=== PATIENT | female | born 1990 | race Caucasian/White ===

== ENCOUNTER → 2017-03-13 | Outpatient (CLI) | payer OTHER ==
[2017-03-13 17:13] LABS: Hepatitis B Surface Antibody POSITIVE (Negative)
[2017-03-14 00:57] LABS: ANA w/Reflex to Titer NEGATIVE (NEGATIVE)
== END | disposition home or self-care (01) ==
LOC: LABWHC1 15:17
PROVIDERS: ATTEND Nurse Practitioner Family
DX: H04.129 Dry eye syndrome of unspecified lacrimal gland (principal); B19.10 Unspecified viral hepatitis B without hepatic coma
CPT/HCPCS: 36415; 84439; 84443; 86038; 86235; 86376; 86706

== ENCOUNTER 2017-05-11 04:37 | Emergency (ER) | payer OTHER ==
[2017-05-11 04:44] LABS: Glucose,Whole Blood 118 mg/dL (75-99)
[2017-05-11] MEDS ORDERED: SODIUM CHLORIDE 0.9% 500 ML IV STA (05:08)
[2017-05-11 05:38] LABS: Basophils % (A) 0 %; CHCM 33.2; Eosinophils # (A) 0.2 k/uL (0-0.7); Eosinophils % (A) 2 %; HCT 39.9 % (34.0-46.0); HDW 2.47; HGB 13.8 gm/dL (11.4-16.0); Luc # (Auto) 0.24; Luc % (Auto) 3; Lymphocytes # (A) 2.8 k/uL (1.0-4.8); Lymphocytes % (A) 28 %; MCH 29.3 pg (25.0-35.0); MCHC 34.6 g/dL (31.0-37.0); MCV 84.7 fL (80.0-100.0); Mean Platelet Volume 7.9; Monocytes # (A) 0.5 k/uL (0-1.0); Monocytes % (A) 5 %; Neutrophils # (A) 6.1 k/uL (1.3-7.7); Neutrophils % (A) 62 %; RBC 4.71 m/uL (3.80-5.40); RDW 12.9 % (11.5-15.5); WBC 9.9 k/uL (3.8-10.6); WBC (Perox) 9.56
--- NOTE | 2017-05-11 05:50 | XR ---
EXAM: XR Chest, 1 View. CLINICAL HISTORY: Reason: syncope TECHNIQUE: Frontal view of the chest. COMPARISON: No relevant prior studies available. FINDINGS: Lungs: Unremarkable. No consolidation. Pleural spaces: Unremarkable. No pneumothorax. Heart: Unremarkable. No cardiomegaly. Mediastinum: Unremarkable. Bones: Unremarkable. No acute fracture. IMPRESSION: Normal chest.
[2017-05-11 05:55] LABS: ALT 24 U/L (9-52); AST 22 U/L (14-36); Alkaline Phosphatase 97 U/L (38-126); Anion Gap 12 mmol/L; Blood Urea Nitrogen 17 mg/dL (7-17); Calcium 9.8 mg/dL (8.4-10.2); Carbon Dioxide 23 mmol/L (22-30); Chloride 106 mmol/L (98-107); Glucose 104 mg/dL (74-99); Non-African American GFR(MDRD) >60 (>60 ml/min/1.73 sqM); Potassium 4.2 mmol/L (3.5-5.1); Sodium 141 mmol/L (137-145); Total Bilirubin 0.9 mg/dL (0.2-1.3); Total Protein 6.8 g/dL (6.3-8.2)
[2017-05-11 05:56] LABS: INR 1.1 (<1.1); Partial Thromboplastin Time 24.8 sec (22.0-30.0); Prothrombin Time 10.7 sec (9.0-12.0)
[2017-05-11 06:12] LABS: Appearance,Urine Cloudy (Clear); Bacteria,Urine Rare /hpf; Bilirubin,Urine Negative (Negative); Glucose,Urine (UA) Negative (Negative); Ketones,Urine Negative (Negative); Leukocyte Esterase,Urine Moderate (Negative); Mucus,Urine Occasional /hpf; Nitrite,Urine Negative (Negative); Particle Count 8103; Protein,Urine Trace (Negative); RBC,Urine 1 /hpf (0-5); Specific Gravity,Urine 1.018 (1.001-1.035); Squamous Epithelial Cell,Urine 2 /hpf (0-4); UA Billing (MACRO vs. MICRO) MICRO; Urobilinogen,Urine <2.0 mg/dL (<2.0); WBC,Urine 7 /hpf (0-5)
[2017-05-11 06:13] LABS: Creatine Kinase 114 U/L (30-135)
[2017-05-11 06:26] LABS: Creatine Kinase MB 0.9 ng/mL (0.0-2.4); Troponin I <0.012 ng/mL (0.000-0.034)
--- NOTE | 2017-05-11 06:55 | ED ---
Syncope HPI - General Chief Complaint: Syncope Stated Complaint: Syncope Time Seen by Provider: 05/11/17 04:52 Source: patient Mode of arrival: EMS Limitations: no limitations - History of Present Illness Initial Comments: This patient is a 26-year-old woman presenting to be evaluated after she had a syncopal episode this morning. The patient states she had gotten out of bed to use the bathroom, was feeling lightheaded, and then the next thing that she knew she had fallen from the commode onto the floor. She denies any injury. She states that she is currently feeling back to her baseline. There were no seizure like symptoms. She was not having chest pain, palpitations, dyspnea, or diaphoresis. MD Complaint: loss of consciousness -: minutes(s) Prodromal Symptoms: lightheaded -: second(s) Witnessed: yes - by bystander Current Symptoms: none, back to baseline Context: getting out of bed Treatments Prior to Arrival: none - Related Data Home Medications Medication Instructions Recorded Confirmed No Known Home Medications [No 05/11/17 05/11/17 Known Home Medications] Allergies Allergy/AdvReac Type Severity Reaction Status Date / Time No Known Allergies Allergy Verified 05/11/17 04:45 Review of Systems ROS Statement: Those systems with pertinent positive or pertinent negative responses have been documented in the HPI. ROS Other: All systems not noted in ROS Statement are negative. Constitutional: Denies: fever, chills, weakness Eyes: Denies: eye pain Respiratory: Denies: cough, dyspnea, wheezes Cardiovascular: Reports: syncope. Denies: chest pain, palpitations, edema Gastrointestinal: Denies: abdominal pain, nausea, vomiting Genitourinary: Denies: dysuria Musculoskeletal: Denies: back pain Skin: Denies: rash, lesions, change in color Neurological: Denies: headache, weakness, numbness Past Medical History Past Medical History: No Reported History Additional Past Medical History / Comment(s): OB history: She had two previous c -section. blood type o+, History of Any Multi-Drug Resistant Organisms: None Reported Past Surgical History: Section Past Anesthesia/Blood Transfusion Reactions: No Reported Reaction Past Psychological History: Anxiety, Depression Smoking Status: Never smoker Past Alcohol Use History: None Reported Past Drug Use History: None Reported - Past Family History Mother Family Medical History: No Reported History General Exam Limitations: no limitations General appearance: alert, in no apparent distress Head exam: Present: atraumatic, normocephalic Eye exam: Present: normal appearance. Absent: scleral icterus, conjunctival injection ENT exam: Present: normal oropharynx Neck exam: Present: normal inspection Respiratory exam: Present: normal lung sounds bilaterally. Absent: respiratory distress, wheezes, rales, rhonchi, stridor Cardiovascular Exam: Present: regular rate, normal rhythm, normal heart sounds. Absent: systolic murmur, diastolic murmur, rubs, gallop GI/Abdominal exam: Present: soft. Absent: distended, tenderness, guarding, rebound, mass Extremities exam: Present: normal inspection, normal capillary refill. Absent: pedal edema, calf tenderness Back exam: Present: normal inspection. Absent: CVA tenderness (R), CVA tenderness (L), vertebral tenderness Neurological exam: Present: alert, oriented X3, CN II-XII intact. Absent: motor sensory deficit Skin exam: Present: warm, dry, intact, normal color. Absent: rash Course Vital Signs 05/11/17 05/11/17 05/11/17 04:39 05:03 06:06 Temperature 98.1 F Pulse Rate 101 H 99 Pulse Rate [ 100 Sitting] Pulse Rate [ 120 H Standing] Pulse Rate [ 91 Supine] Respiratory 16 16 Rate Blood Pressure 113/55 110/59 Blood Pressure 113/51 [Sitting] Blood Pressure 105/51 [Standing] Blood Pressure 104/51 [Supine] O2 Sat by Pulse 100 99 100 Oximetry 05/11/17 07:05 Temperature 98.6 F Pulse Rate 101 H Pulse Rate [ Sitting] Pulse Rate [ Standing] Pulse Rate [ Supine] Respiratory 15 Rate Blood Pressure 117/56 Blood Pressure [Sitting] Blood Pressure [Standing] Blood Pressure [Supine] O2 Sat by Pulse 97 Oximetry EKG Findings - EKG Results: EKG: interpreted by ERMD, sinus rhythm (Rate 100 bpm), normal QRS, normal ST/T - Blocks, [place], Hypertrophy, ST Abn: QRS axis and voltage: right axis deviation (+90 to +180) Medical Decision Making - Lab Data Result diagrams: 05/11/17 04:56 05/11/17 04:56 Lab Results 05/11/17 05/11/17 05/11/17 Range/Units 04:41 04:56 04:56 WBC 9.9 (3.8-10.6) k/uL RBC 4.71 (3.80-5.40) m/uL Hgb 13.8 (11.4-16.0) gm/dL Hct 39.9 (34.0-46.0) % MCV 84.7 (80.0-100.0) fL MCH 29.3 (25.0-35.0) pg MCHC 34.6 (31.0-37.0) g/dL RDW 12.9 (11.5-15.5) % Plt Count 225 (150-450) k/uL Neutrophils % 62 % Lymphocytes % 28 % Monocytes % 5 % Eosinophils % 2 % Basophils % 0 % Neutrophils # 6.1 (1.3-7.7) k/uL Lymphocytes # 2.8 (1.0-4.8) k/uL Monocytes # 0.5 (0-1.0) k/uL Eosinophils # 0.2 (0-0.7) k/uL Basophils # 0.0 (0-0.2) k/uL PT (9.0-12.0) sec INR (<1.1) APTT (22.0-30.0) sec D-Dimer (<0.60) mg/L FEU Sodium (137-145) mmol/L Potassium (3.5-5.1) mmol/L Chloride (98-107) mmol/L Carbon Dioxide (22-30) mmol/L Anion Gap mmol/L BUN (7-17) mg/dL Creatinine (0.52-1.04) mg/dL Est GFR (MDRD) Af Amer (>60 ml/min/1.73 sqM) Est GFR (MDRD) Non-Af (>60 ml/min/1.73 sqM) Glucose (74-99) mg/dL POC Glucose (mg/dL) 118 H (75-99) mg/dL POC Glu [employer]igerator Preparer ID [place] Calcium (8.4-10.2) mg/dL Total Bilirubin (0.2-1.3) mg/dL AST (14-36) U/L ALT (9-52) U/L Alkaline Phosphatase (38-126) U/L Total Creatine Kinase 114 (30-135) U/L CK-MB (CK-2) 0.9 (0.0-2.4) ng/mL CK-MB (CK-2) Rel Index 0.8 Troponin I <0.012 (0.000-0.034) ng/mL Total Protein (6.3-8.2) g/dL Albumin (3.5-5.0) g/dL Urine Color Urine Appearance (Clear) Urine pH (5.0-8.0) Ur Specific [place] (1.001-1.035) Urine Protein (Negative) Urine Glucose (UA) (Negative) Urine Ketones (Negative) Urine Blood (Negative) Urine Nitrite (Negative) Urine Bilirubin (Negative) Urine Urobilinogen (<2.0) mg/dL Ur Leukocyte Esterase (Negative) Urine RBC (0-5) /hpf Urine WBC (0-5) /hpf Ur Squamous Epith Cells (0-4) /hpf Urine Bacteria (None) /hpf Hyaline Casts (0-2) /lpf Urine Mucus (None) /hpf 05/11/17 05/11/17 05/11/17 Range/Units 04:56 04:56 05:28 WBC (3.8-10.6) k/uL RBC (3.80-5.40) m/uL Hgb (11.4-16.0) gm/dL Hct (34.0-46.0) % MCV (80.0-100.0) fL MCH (25.0-35.0) pg MCHC (31.0-37.0) g/dL RDW (11.5-15.5) % Plt Count (150-450) k/uL Neutrophils % % Lymphocytes % % Monocytes % % Eosinophils % % Basophils % % Neutrophils # (1.3-7.7) k/uL Lymphocytes # (1.0-4.8) k/uL Monocytes # (0-1.0) k/uL Eosinophils # (0-0.7) k/uL Basophils # (0-0.2) k/uL PT 10.7 (9.0-12.0) sec INR 1.1 (<1.1) APTT 24.8 (22.0-30.0) sec D-Dimer 0.26 (<0.60) mg/L FEU Sodium 141 (137-145) mmol/L Potassium 4.2 (3.5-5.1) mmol/L Chloride 106 (98-107) mmol/L Carbon Dioxide 23 (22-30) mmol/L Anion Gap 12 mmol/L BUN 17 (7-17) mg/dL Creatinine 0.69 (0.52-1.04) mg/dL Est GFR (MDRD) Af Amer >60 (>60 ml/min/1.73 sqM) Est GFR (MDRD) Non-Af >60 (>60 ml/min/1.73 sqM) Glucose 104 H (74-99) mg/dL POC Glucose (mg/dL) (75-99) mg/dL POC Glu Electric Refrigerator Preparer ID Calcium 9.8 (8.4-10.2) mg/dL Total Bilirubin 0.9 (0.2-1.3) mg/dL AST 22 (14-36) U/L ALT 24 (9-52) U/L Alkaline Phosphatase 97 (38-126) U/L Total Creatine Kinase (30-135) U/L CK-MB (CK-2) (0.0-2.4) ng/mL CK-MB (CK-2) Rel Index Troponin I (0.000-0.034) ng/mL Total Protein 6.8 (6.3-8.2) g/dL Albumin 3.9 (3.5-5.0) g/dL Urine Color Yellow Urine Appearance Cloudy H (Clear) Urine pH 6.0 (5.0-8.0) Ur Specific [place] 1.018 (1.001-1.035) Urine Protein Trace H (Negative) Urine Glucose (UA) Negative (Negative) Urine Ketones Negative (Negative) Urine Blood Negative (Negative) Urine Nitrite Negative (Negative) Urine Bilirubin Negative (Negative) Urine Urobilinogen <2.0 (<2.0) mg/dL Ur Leukocyte Esterase Moderate H (Negative) Urine RBC 1 (0-5) /hpf Urine WBC 7 H (0-5) /hpf Ur Squamous Epith Cells 2 (0-4) /hpf Urine Bacteria Rare H (None) /hpf Hyaline Casts 9 H (0-2) /lpf Urine Mucus Occasional H (None) /hpf Disposition Clinical Impression: Vasovagal syncope Disposition: HOME SELF-CARE Condition: Good Instructions: Syncope (ED) Referrals: Debbie De Anda III, MD [Primary Care Provider] - 1-2 days
[2017-05-11 07:06] VITALS: BP 117/56; PULSE 101; RESP 15; TEMP 98.6
== END 2017-05-11 07:07 | disposition home or self-care (01) ==
LOC: EC 04:37
DX: R55 Syncope and collapse (principal); R42 Dizziness and giddiness; W17.89XA Other fall from one level to another, initial encounter; Y92.002 Bathroom of unspecified non-institutional (private) residence as the place of occurrence of the external cause
CPT/HCPCS: 36415; 71010; 80053; 81001; 82550; 82553; 84484; 85025; 85379; 85610; 85730; 93005; 96360; 99285

== ENCOUNTER → 2017-06-19 | Outpatient (CLI) | payer OTHER ==
--- NOTE | 2017-06-19 18:03 | ECHOF ---
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 This was a technically good study. Overall left ventricular systolic function is normal with, an EF between 60 - 65 %. The right ventricle is normal in size and function. Normal LA size by volume 22+/-6 ml/m2. The right atrium is normal in size. The aortic valve is trileaflet, and appears structurally normal. No aortic stenosis or regurgitation. The mitral valve is normal. There is trace mitral regurgitation. Trace tricuspid regurgitation present. There is no evidence of pulmonary hypertension. The right ventricular systolic pressure, as measured by Doppler, is 9.42mmHg. The pulmonic valve is normal. The aortic root size is normal. Normal inferior vena cava with normal inspiratory collapse consistent with estimated right atrial pressure of 5 mmHg. The pericardium is normal. There is no pericardial effusion. CONCLUSIONS -------- 1. Sinus rhythm. 2. The aortic root size is normal. 3. There is no pericardial effusion. 4. This was a technically good study. 5. Overall left ventricular systolic function is normal with, an EF between 60 - 65 %. 6. Normal LA size by volume 22+/-6 ml/m2. 7. The aortic valve is trileaflet, and appears structurally normal. No aortic stenosis or regurgitation. 8. There is trace mitral regurgitation. 9. Trace tricuspid regurgitation present. 10. There is no evidence of pulmonary hypertension. 11. The right ventricular systolic pressure, as measured by Doppler, is 9.42mmHg. TIP SCOURER: Lm Hughes RDCS
== END | disposition home or self-care (01) ==
LOC: RADECHMAIN 16:16
PROVIDERS: ATTEND Family Medicine
DX: Q23.1 Congenital insufficiency of aortic valve (principal)
CPT/HCPCS: 93306

== ENCOUNTER → 2017-08-01 | Outpatient (CLI) | payer OTHER ==
--- NOTE | 2017-08-01 13:14 | XR ---
EXAMINATION TYPE: XR scoliosis survey DATE OF EXAM: 08/01/2017 COMPARISON: NONE HISTORY: Chronic back pain TECHNIQUE: 4 views are submitted FINDINGS: There is a subtle S-shaped curvature of the thoracal lumbar spine measuring approximately 8 degrees. Calcifications in the right upper quadrant. IMPRESSION: 1. Subtle S-shaped scoliotic curvature measuring approximately 8 degrees. 2. Correlate for right-sided nephrolithiasis.
== END ==
LOC: RADXRMAIN 12:13
PROVIDERS: ATTEND Nurse Practitioner Family
DX: M41.9 Scoliosis, unspecified (principal)
CPT/HCPCS: 72082

== ENCOUNTER → 2017-08-10 | Outpatient (CLI) | payer OTHER ==
--- NOTE | 2017-08-10 10:59 | CT ---
EXAMINATION TYPE: CT abdomen pelvis wo con DATE OF EXAM: 08/10/2017 COMPARISON: NONE HISTORY: calculus of kidney/ab pain/lower back pain x [address] DLP: 390.40 mGycm Automated exposure control for dose reduction was used. TECHNIQUE: Helical acquisition of images was performed from the lung bases through the pelvis withou t intravenous or oral contrast. This limits evaluation of the hollow and solid viscera.. FINDINGS: LUNG BASES: No significant abnormality is appreciated. LIVER/GB: No significant abnormality is appreciated. PANCREAS: No significant abnormality is seen. SPLEEN: No significant abnormality is seen. ADRENALS: No significant abnormality is seen. KIDNEYS: Within the superior pole the right kidney there is a 3 mm nonobstructing calculus, within th e inferior pole the right kidney there is a 4 mm nonobstructing calculus and within the left inferior pole there is a 2 mm nonobstructing calculus. No evidence of ureteral or urinary bladder calculi. Si ngle phlebolith is seen within the left hemipelvis.. FREE AIR: No free air is visualized RETROPERITONEAL ADENOPATHY: None visualized REPRODUCTIVE ORGANS: Probable left ovarian cyst versus follicle. URINARY BLADDER: No significant abnormality is seen. PELVIC ADENOPATHY: None visualized. OSSEOUS STRUCTURES: No significant abnormality is seen. BOWEL: No significant abnormality is seen. Appendix is air-filled and within normal limits of size. OTHER: Diastases recti is noted as well as a small fat filled umbilical hernia with a 6 mm neck. Umbi lical vein is incidentally noted although no discrete evidence of hepatic disease is seen. IMPRESSION: 1. BILATERAL NONOBSTRUCTING RENAL CALCULI. NO EVIDENCE OF OBSTRUCTIVE UROPATHY OR URINARY BLADDER LUIS ANGEL CULI. 2. PROBABLE LEFT ADNEXAL FOLLICLE VERSUS CYST. IF FURTHER CLINICAL CONCERN PELVIC ULTRASOUND COULD BE PERFORMED FOR CHARACTERIZATION.
== END | disposition home or self-care (01) ==
LOC: RADCTMAIN 09:16
PROVIDERS: ATTEND Family Medicine
DX: N20.0 Calculus of kidney (principal)
CPT/HCPCS: 74176

== ENCOUNTER → 2018-05-24 | Day surgery (SDC) | payer OTHER ==
[2018-05-21 12:24] VITALS: BMI 28.3
--- NOTE | 2018-05-23 06:38 | P.HPOB ---
History of Present Illness H&P Date: 05/23/18 Chief Complaint: Patient is requesting permanent sterilization. This patient is a pleasant 27-year-old 2 para 2 female who presented to me for her yearly examination was requesting permanent sterilization. Patient' s was going to get a vasectomy however he declined. Patient does not want anything hormonal for control or an IUD has requested laparoscopic tubal cauterization for permanent sterilization. Review of Systems Constitutional: Denies chills, Denies fever Cardiovascular: Denies chest pain, Denies shortness of breath Past Medical History Past Medical History: No Reported History Additional Past Medical History / Comment(s): OB history: She had two previous c -section. blood type o+, History of Any Multi-Drug Resistant Organisms: None Reported Past Surgical History: Section Additional Past Surgical History / Comment(s): c-sect x 2 Past Anesthesia/Blood Transfusion Reactions: No Reported Reaction Past Psychological History: Depression Smoking Status: Never smoker Past Alcohol Use History: None Reported Past Drug Use History: None Reported - Past Family History Mother Family Medical History: No Reported History Medications and Allergies Home Medications Medication Instructions Recorded Confirmed Type FLUoxetine HCL [PROzac] 40 mg PO DAILY 05/21/18 05/21/18 History Allergies Allergy/AdvReac Type Severity Reaction Status Date / Time No Known Allergies Allergy Verified 05/21/18 12:20 Exam - OBG Physical Exam Abdomen: bowel sounds normal, no diffuse tenderness, no bruit present, no guarding noted, no hepatomegaly, no splenomegaly, no mass Vulva: both: normal Vagina: normal moisture, no discharge Cervix: no lesion, no discharge Uterus: normal size, normal contour Adnexa: both: normal Assessment and Plan (1) Family planning Narrative/Plan: This is a pleasant 27-year-old 2 para 2 female who is presenting for laparoscopic bilateral fallopian tube cauterization for permanent sterilization. Patient I have discussed the fact that this is a permanent procedure, however there is a failure rate of approximately 5 per thousand procedures done. She understands that if she were to ever to become she has a 50% chance of a tubal or an ectopic . Patient also understands laparoscopic surgery and apparently has risks including risks of infection, bleeding, possible injury to bowel, bladder, vessels, and/or other organs. We've discussed the fact that this is an elective procedure and alternatives exist. All the patient's questions are answered and a written consent is obtained. Status: Acute Code(s): Z30.09 - ENCOUNTER FOR OTH GENERAL CNSL AND ADVICE ON CONTRACEPTION SNOMED Code(s): 684706515
[~2018-05-24] MED LIST: BUPIVACAINE (PF) 0.5% 30 ML VIAL SQ ONE; DEXAMETHASONE SOD PHOSPHATE 10 MG/ML 1 ML VIAL IV ONE; HYDROmorphone (PF) 1 MG/ML ONE; HYDROmorphone 0.5 MG/0.5 ML SYRINGE IVP PRN; KETOROLAC 30 MG/ML 1 ML VIAL ONE; LACTATED RINGERS 1,000 ML IV SCH; LIDOCAINE 1% 20 ML VIAL (10MG/ML) FOR IV START INTRADERMA ONE; LIDOCAINE 1% INJ 10MG/ML (20 ML MDV) ONE; MIDAZOLAM 2 MG/2 ML VIAL ONE; ONDANSETRON 4 MG/2 ML VIAL IVP ONE; PROPOFOL 10 MG/ML 20 ML VIAL IV ONE; Pre Op ABX Message 1 EACH MISC MISCELLANE ONE; SCOPOLAMINE 1.5MG/72HR PATCH TRANSDERM ONE; SUCCINYLCHOLINE CHLORIDE 100 MG/5 ML SYR IV ONE; diphenhydrAMINE 50 MG/ML 1 ML VIAL IVP ONE; fentaNYL (PF) 50 MCG/ML 2 ML AMP ONE
--- NOTE | 2018-05-24 08:08 | P.OP ---
Date of Procedure: 05/24/18 Preoperative Diagnosis: Multi parity desires permanent sterilization Postoperative Diagnosis: Same Procedure(s) Performed: Laparoscopic bilateral fallopian tube cauterization Anesthesia: JEFF Surgeon: Garry Hope Estimated Blood Loss (ml): 10 IV fluids (ml): 25 Pathology: none sent Condition: stable Disposition: PACU Indications for Procedure: Please see dictated H&P for intimate details of this patient's admission. Brief summary this is a pleasant 27-year-old 2 para 2 female admitted to the [facility] for elective laparoscopic tubal cauterization for permanent sterilization. Understands this procedure is considered permanent, however there is approximately 5 per thousand chance of failure. She understands if she did become she is a 50% chance of a tubal or an ectopic . Patient also understands this surgery itself has risks including risks of infection, bleeding, possible injury bowel, bladder, vessels , and/or other organs. All the patient's questions are answered written consent is obtained. Operative Findings: This patient had a normal-appearing pelvis and upper abdomen. Description of Procedure: This patient is taken to the operating room where she is laid in the supine position. She subsequent undergoes general endotracheal anesthesia without incident. With an adequate level of anesthesia she's placed in the dorsal lithotomy position. She has a vaginal perineal abdominal prep and drape. First good on below placed a speculum into the vagina visualizing cervix. The anterior lip of the cervix is grasped with an Allis clamp and the acorn cannula is gently placed into the endocervix. Cannula is attached to the Allis clamp. Bladder is drained with a red Brock catheter for 25 mL of urine and left in place. With this done I then removed the speculum changed gloves and go up above. A 1 cm infraumbilical incision is then made. A 10 mm bladed Transfluent optical trocar is then placed directly into the peritoneal cavity. With peritoneal placement confirmed, pneumoperitoneum was then created to 12 mm of carbon dioxide gas. With this done the patient placed in Trendelenburg position. A 5 mm incision made through the previous Pfannenstiel skin incision. Through the [address] a 5 mm bladed lists optical trocar. This done a blunt probe was used to visualize uterus tubes and ovaries all appears normal. Upper abdomen appears normal. Using bipolar cautery I then grasped the left fallopian tube approximately 4 cm from its cornual insertion and a 2-3 cm segment of tube is completely cauterized using bipolar cautery. Complete cauterization is noted by the volt meter. Similar technique is done on the right side with similar results. With this done the lower trochars removed. Excellent hemostasis is noted. The pneumoperitoneum was reduced and the upper trochars removed. Incisions are then closed using interrupted 4-0 Vicryl. I did put 2 stitches on the skin of the umbilical incision for hemostasis. An excellent hemostasis is noted. Steri-Strips and sterile dressing is applied. I infiltrate both incisions with half percent Marcaine for postoperative pain control.I then go down below remove the acorn cannula an Allis clamp. Patient this point is awakened from anesthesia and taken the recovery room in satisfactory condition. All counts are correct 3. There are no complications.
[2018-05-24 08:23] VITALS: TEMP 97.5
[2018-05-24 09:05] VITALS: RESP 18
[2018-05-24 10:14] VITALS: BP 97/61; PULSE 78
== END | disposition home or self-care (01) ==
LOC: OR 05:44
PROVIDERS: ATTEND Obstetrics & Gynecology
DX: Z30.2 Encounter for sterilization (principal); Z79.1 Long term (current) use of non-steroidal anti-inflammatories (NSAID); Z79.891 Long term (current) use of opiate analgesic; Z79.899 Other long term (current) drug therapy
CPT/HCPCS: 81025; 58600; J2250; J1200; J1100; J2405; J2001; J3010; J1885; J1170; J0330; J2704

== ENCOUNTER 2018-05-28 16:38 | Emergency (ER) | payer OTHER ==
[2018-05-28 17:45] VITALS: BP 116/70; PULSE 68; RESP 18; TEMP 98.3
[2018-05-28 18:31] LABS: Basophils % (A) 0 %; Eosinophils # (A) 0.2 k/uL (0-0.7); Eosinophils % (A) 2 %; HCT 40.7 % (34.0-46.0); HGB 13.5 gm/dL (11.4-16.0); Lymphocytes # (A) 3.7 k/uL (1.0-4.8); Lymphocytes % (A) 32 %; MCH 27.9 pg (25.0-35.0); MCHC 33.1 g/dL (31.0-37.0); Mean Platelet Volume 7.1; Monocytes # (A) 0.6 k/uL (0-1.0); Monocytes % (A) 5 %; Neutrophils % (A) 60 %; Platelet Count 308 k/uL (150-450); RBC 4.83 m/uL (3.80-5.40); RDW 13.2 % (11.5-15.5); WBC 11.7 k/uL (3.8-10.6)
[2018-05-28 18:35] LABS: MCV 84.3 fL (80.0-100.0)
[2018-05-28 18:44] LABS: ALT 27 U/L (9-52); AST 22 U/L (14-36); Albumin 4.3 g/dL (3.5-5.0); Alkaline Phosphatase 89 U/L (38-126); Amylase 74 U/L (30-110); Anion Gap 9 mmol/L; Blood Urea Nitrogen 18 mg/dL (7-17); Calcium 9.9 mg/dL (8.4-10.2); Carbon Dioxide 27 mmol/L (22-30); Chloride 103 mmol/L (98-107); Glucose 87 mg/dL (74-99); Lipase 49 U/L (23-300); Potassium 4.2 mmol/L (3.5-5.1); Sodium 139 mmol/L (137-145); Total Bilirubin 0.9 mg/dL (0.2-1.3)
[2018-05-28] MEDS ORDERED: SODIUM CHLORIDE 0.9% 1,000 ML IV SCH (20:45)
--- NOTE | 2018-05-28 20:48 | ED ---
Abdominal Pain HPI - General Chief Complaint: Abdominal Pain Stated Complaint: Post surgery/stomach very hard Time Seen by Provider: 05/28/18 20:35 Source: patient, RN notes reviewed, old records reviewed Mode of arrival: ambulatory Limitations: no limitations - History of Present Illness Initial Comments: 27-year-old female 3 days postop after tubal ligation presents emergency room with abdominal pain and distention. Patient states that she's had some lower pelvic pain. Patient reports no dysuria or hematuria. Short is a passing gas and had a bowel movement today. She states there feels like her insides are swollen and pushing forward. She states that she has had no vomiting. No chest pain. She reports it seems that she feels short of breath because it feels like she is having pressure on her diaphragm. Patient states that she has no vaginal discharge. Her surgical sites appeared well. No drainage or redness. - Related Data Home Medications Medication Instructions Recorded Confirmed FLUoxetine HCL [PROzac] 40 mg PO DAILY 05/21/18 05/28/18 Cholecalciferol (Vitamin D3) 2,000 unit PO DAILY 05/28/18 05/28/18 [Vitamin D3] Allergies Allergy/AdvReac Type Severity Reaction Status Date / Time No Known Allergies Allergy Verified 05/28/18 20:45 Review of Systems ROS Statement: Those systems with pertinent positive or pertinent negative responses have been documented in the HPI. ROS Other: All systems not noted in ROS Statement are negative. Past Medical History Past Medical History: No Reported History Additional Past Medical History / Comment(s): OB history: She had two previous c -section. blood type o+, History of Any Multi-Drug Resistant Organisms: None Reported Past Surgical History: Section, Tubal Ligation Past Anesthesia/Blood Transfusion Reactions: No Reported Reaction Past Psychological History: Anxiety, Depression Smoking Status: Never smoker Past Alcohol Use History: None Reported Past Drug Use History: None Reported - Past Family History Mother Family Medical History: No Reported History General Exam - General Exam Comments Initial Comments: This is a 27-year-old female. Alert and oriented. No significant distress. Limitations: no limitations General appearance: alert, in no apparent distress Head exam: Present: atraumatic, normocephalic, normal inspection Eye exam: Present: normal appearance, PERRL, EOMI. Absent: scleral icterus, conjunctival injection, periorbital swelling ENT exam: Present: normal exam, mucous membranes moist Neck exam: Present: normal inspection. Absent: tenderness, meningismus, lymphadenopathy Respiratory exam: Present: normal lung sounds bilaterally. Absent: respiratory distress, wheezes, rales, rhonchi, stridor Cardiovascular Exam: Present: regular rate, normal rhythm, normal heart sounds. Absent: systolic murmur, diastolic murmur, rubs, gallop, clicks GI/Abdominal exam: Present: distended, tenderness (Right left lower quadrant tenderness.), normal bowel sounds, other (Well appearin incision site over her umbilicus and suprapubic region.). Absent: soft, guarding, rebound, rigid Back exam: Present: normal inspection Neurological exam: Present: alert, oriented X3, CN II-XII intact Course Vital Signs 05/28/18 17:41 Temperature 98.3 F Pulse Rate 68 Respiratory 18 Rate Blood Pressure 116/70 O2 Sat by Pulse 99 Oximetry Medical Decision Making - Medical Decision Making 27-year-old 3 days postop after tube ligation presents with abdominal pain and distention. Patient has been having normal bowel movements. Patient labwork was reviewed and unremarkable. She does have some mild tenderness quadrant. We did do a CT rule out any infectious or inflammatory process related to this surgery. This is negative. Patient will follow up with primary care physician and surgeon on Monday. All questions answered return parameters were discussed. - Lab Data Result diagrams: 05/28/18 18:11 05/28/18 18:11 Lab Results 05/28/18 05/28/18 05/28/18 Range/Units 18:11 18:11 21:20 WBC 11.7 H (3.8-10.6) k/uL RBC 4.83 (3.80-5.40) m/uL Hgb 13.5 (11.4-16.0) gm/dL Hct 40.7 (34.0-46.0) % MCV 84.3 D (80.0-100.0) fL MCH 27.9 (25.0-35.0) pg MCHC 33.1 (31.0-37.0) g/dL RDW 13.2 (11.5-15.5) % Plt Count 308 (150-450) k/uL Neutrophils % 60 % Lymphocytes % 32 % Monocytes % 5 % Eosinophils % 2 % Basophils % 0 % Neutrophils # 7.0 (1.3-7.7) k/uL Lymphocytes # 3.7 (1.0-4.8) k/uL Monocytes # 0.6 (0-1.0) k/uL Eosinophils # 0.2 (0-0.7) k/uL Basophils # 0.0 (0-0.2) k/uL Sodium 139 (137-145) mmol/L Potassium 4.2 (3.5-5.1) mmol/L Chloride 103 (98-107) mmol/L Carbon Dioxide 27 (22-30) mmol/L Anion Gap 9 mmol/L BUN 18 H (7-17) mg/dL Creatinine 0.70 (0.52-1.04) mg/dL Est GFR (CKD-EPI)AfAm >90 (>60 ml/min/1.73 sqM) Est GFR (CKD-EPI)NonAf >90 (>60 ml/min/1.73 sqM) Glucose 87 (74-99) mg/dL Calcium 9.9 (8.4-10.2) mg/dL Total Bilirubin 0.9 (0.2-1.3) mg/dL AST 22 (14-36) U/L ALT 27 (9-52) U/L Alkaline Phosphatase 89 (38-126) U/L Total Protein 7.0 (6.3-8.2) g/dL Albumin 4.3 (3.5-5.0) g/dL Amylase 74 (30-110) U/L Lipase 49 (23-300) U/L Urine Color Yellow Urine Appearance Clear (Clear) Urine pH 6.0 (5.0-8.0) Ur Specific [place] 1.017 (1.001-1.035) Urine Protein Negative (Negative) Urine Glucose (UA) Negative (Negative) Urine Ketones Negative (Negative) Urine Blood Negative (Negative) Urine Nitrite Negative (Negative) Urine Bilirubin Negative (Negative) Urine Urobilinogen <2.0 (<2.0) mg/dL Ur Leukocyte Esterase Negative (Negative) - Radiology Data Radiology results: report reviewed Nonobstructive day right renal calculus unchanged. Renal cortical cysts. Hemangioma. No sign of acute abdomen and pelvis. No adverse changes compared old exam. Disposition Clinical Impression: Abdominal discomfort, History of recent surgery Disposition: HOME SELF-CARE Condition: Good Instructions: Gas and Bloating (ED) Additional Instructions: Patient advised clear liquid diet for next 1-2 days. Return to the emergency department if any alarming signs or symptoms occur. Follow-up with your surgeon within the next few days. Is patient prescribed a controlled substance at d/c from ED?: No When asked, does pt state using other controlled substances?: No If prescribed controlled substance>3 days was MAPS reviewed?: No If opioid is for acute pain is fill amount 7 days or less?: No If Rx opioid, was Start Talking consent form obtained?: No Referrals: Robby Gomes MD [Primary Care Provider] - 1-2 days Time of Disposition: 22:27
[2018-05-28 21:36] LABS: Appearance,Urine Clear (Clear); Bilirubin,Urine Negative (Negative); Blood,Urine Negative (Negative); Color,Urine Yellow; Glucose,Urine (UA) Negative (Negative); Ketones,Urine Negative (Negative); Leukocyte Esterase,Urine Negative (Negative); Nitrite,Urine Negative (Negative); Protein,Urine Negative (Negative); Specific Gravity,Urine 1.017 (1.001-1.035); Urobilinogen,Urine <2.0 mg/dL (<2.0)
--- NOTE | 2018-05-28 22:21 | CT ---
EXAMINATION TYPE: CT abdomen pelvis w con DATE OF EXAM: 05/28/2018 COMPARISON: 08/10/2017 HISTORY: Lower abdominal pain and distention post tubual ligation on 05/24/18. CT DLP: 744.5 mGycm Automated exposure control for dose reduction was used. TECHNIQUE: Helical acquisition of images was performed from the lung bases through the pelvis. CONTRAST: Performed without Oral Contrast and with IV Contrast, patient injected with 100ml mL of Isovue 300. FINDINGS: Lung bases are clear. There is no pleural effusion. There is a 2 cm low-density mass in the superior right lobe of the liver with nodular delayed enhancement consistent with hemangioma. Liver shows no d ilated ducts. Spleen appears normal. There is no pancreatic mass. Gallbladder appears normal. There is no adrenal mass. Kidneys show satisfactory contrast opacification. There is a 1 severe corti mmii cyst posterior left kidney. There is no hydronephrosis. There is 1.5 cm cortical cyst anterior ri ght kidney. There is no retroperitoneal adenopathy. There is no ascites. Bladder distends smoothly. U terus is anteverted. There is no pelvic mass. There is no intestinal wall thickening. There are no di lated loops. Appendix appears normal. There is a 5 mm calculus in the lower pole right kidney. IMPRESSION: NONOBSTRUCTING RIGHT RENAL CALCULUS IS UNCHANGED. RENAL CORTICAL CYSTS. HEPATIC HEMANGIOMA. NO SIGN O F ACUTE ABDOMEN AND PELVIS. NO ADVERSE CHANGE COMPARED TO OLD EXAM.
== END 2018-05-28 22:54 | disposition home or self-care (01) ==
LOC: EC 16:38
DX: R10.9 Unspecified abdominal pain (principal); R14.0 Abdominal distension (gaseous); F41.9 Anxiety disorder, unspecified; F32.9 Major depressive disorder, single episode, unspecified; Z98.51 Tubal ligation status; Z79.899 Other long term (current) drug therapy
CPT/HCPCS: 36415; 80053; 82150; 83690; 85025; 81003; 74177; 99284; 96360; 96361; Q9967

== ENCOUNTER 2018-11-03 19:07 | Emergency (ER) | payer OTHER ==
--- NOTE | 2018-11-03 19:55 | XR ---
EXAMINATION TYPE: XR ankle complete LT DATE OF EXAM: 11/03/2018 COMPARISON: NONE HISTORY: Foot and ankle pain TECHNIQUE: 3 views FINDINGS: There is soft tissue swelling over the lateral malleolus. Ankle mortise is anatomic. I see no fracture. IMPRESSION: Soft tissue swelling. No fracture.
--- NOTE | 2018-11-03 19:55 | XR ---
EXAMINATION TYPE: XR foot complete LT DATE OF EXAM: 11/03/2018 COMPARISON: NONE HISTORY: Foot and ankle pain TECHNIQUE: 3 views FINDINGS: Metatarsals are intact. I see no fracture nor dislocation. Joint spaces are normal. IMPRESSION: Negative left foot exam.
--- NOTE | 2018-11-03 21:07 | ED ---
General Adult HPI - General Chief complaint: Extremity Injury, Lower Stated complaint: Ankle injury Source: patient, RN notes reviewed, old records reviewed Mode of arrival: ambulatory Limitations: no limitations - History of Present Illness Initial comments: 20-year-old female patient with no pertinent past medical history suffered a left ankle inversion injury while walking down her stairs inside her house. She is on her last stair she "rolled" her ankle. Patient felt a pop and pain when this occurred. Patient denies fall to the ground, head trauma, any other injury. Patient is ambulatory with pain. Patient primary complaint is pain of the lateral malleolus. Patient denies any proximal tibia-fibula she will pain, knee pain, any other injury. Systemic: Pt denies fatigue, myalgia, fever/chills, rash. Pt denies weakness, night sweats, weight loss. Neuro: Pt denies headache, visual disturbances, syncope or pre-syncope. HEENT: Pt denies ocular discharge or irritation, otalgia, rhinorrhea, pharyngitis or notable lymphadenopathy. Cardiopulmonary: Pt denies chest pain, SOB, heart palpitations, dyspnea on exertion. Abdominal/GI: Pt denies abdominal pain, n/v/d. : Pt denies dysuria, burning w/ urination, frequency/urgency. Denies new onset urinary or bowel incontinence. MSK: Pt denies myalgia, loss of strength or function in extremities. Neuro: Pt denies new onset weakness, paresthesias. - Related Data Home Medications Medication Instructions Recorded Confirmed FLUoxetine HCL [PROzac] 40 mg PO DAILY 05/21/18 05/28/18 Cholecalciferol (Vitamin D3) 2,000 unit PO DAILY 05/28/18 05/28/18 [Vitamin D3] Allergies Allergy/AdvReac Type Severity Reaction Status Date / Time No Known Allergies Allergy Verified 11/03/18 19:12 Review of Systems ROS Statement: Those systems with pertinent positive or pertinent negative responses have been documented in the HPI. ROS Other: All systems not noted in ROS Statement are negative. Past Medical History Past Medical History: No Reported History Additional Past Medical History / Comment(s): OB history: She had two previous c -section. blood type o+, History of Any Multi-Drug Resistant Organisms: None Reported Past Surgical History: Section, Tubal Ligation Past Anesthesia/Blood Transfusion Reactions: No Reported Reaction Past Psychological History: Anxiety, Depression Smoking Status: Never smoker Past Alcohol Use History: None Reported Past Drug Use History: None Reported - Past Family History Mother Family Medical History: No Reported History General Exam - General Exam Comments Initial Comments: Constitutional: NAD, AOX3, Pt has pleasant affect. HEENT: NC/AT, trachea midline, neck supple, no lymphadenopathy. Posterior pharynx non erythematous, without exudates. External ears appear normal, without discharge. Mucous membranes moist. Eyes PERRLA, EOM intact. There is no scleral icterus. No pallor noted. Cardiopulmonary: RRR, no murmurs, rubs or gallops, no JVD noted. Lungs CTAB in anterior and posterior bowser. No peripheral edema. Abdominal exam: Abdomen soft and non-distended. Abdomen non-tender to palpation in all 4 quadrants. Bowel sounds active in LLQ. No hepatosplenomegaly. No ecchymosis Neuro: CN II-XII grossly intact. No nuchal rigidity. MSK: Tenderness to palpation in the lateral malleolus of left ankle. Lateral flexion dorsiflexion intact. Patient local toes. Sensation intact. Neurovascularly intact. No ecchymoses. Patient ambulatory with mild pain. No posterior calf tenderness bilaterally, homans sign negative bilaterally. Posterior tibialis and radial pulse +2 bilaterally. Sensation intact in upper and lower extremities. Full active ROM in upper and lower extremities, 5/5 stregnth. No proximal tibia/fibula tenderness to palpation. Limitations: no limitations Course Vital Signs 11/03/18 19:09 Temperature 98.3 F Pulse Rate 97 Respiratory 18 Rate Blood Pressure 121/74 O2 Sat by Pulse 99 Oximetry Medical Decision Making - Medical Decision Making 20-year-old female patient presents to ED after sustaining a left lateral ankle inversion injury walking down her stairs today. Patient felt a pop and pain at the time of this injury. Patient is mandatory with pain. Physical exam revealed tenderness to the lateral malleolus. No ecchymoses noted. Patient active range of motion intact, patient neurovascularly intact. Plain films of left ankle and left foot do not display any fracture. Patient diagnosed ankle sprain. Patient left ankle wraps loosely with Kurtis bandages. She discharge in postoperative shoe. Patient written prescription for crutches. Patient to bear weight as tolerated. Patient given referral to orthopedic consult. Patient to schedule follow-up as soon as possible with orthopedics. Patient to follow PCP 1-2 days. Patient to return to ED if any signs or symptoms develop. Case discussed with Dr. Johnson. Disposition Clinical Impression: Left ankle sprain Disposition: HOME SELF-CARE Condition: Good Instructions: Ankle Sprain (ED) Additional Instructions: Patient to adhere to previously discussed treatment plan and will take medication(s) as directed. Patient to follow up with PCP in 1-2 days. Patient to return to ED if symptoms do not improve. Is patient prescribed a controlled substance at d/c from ED?: No Referrals: Robby Gomes MD [Primary Care Provider] - 1-2 days Jhon Arrieta PAC [PHYSICIAN ENTREPRENEURSHIP PROGRAM DIRECTOR] - 1-2 days Time of Disposition: 21:07
[2018-11-03 21:32] VITALS: BP 120/68; PULSE 69; RESP 16; TEMP 99.1
== END 2018-11-03 21:32 | disposition home or self-care (01) ==
LOC: EC 19:07
DX: S93.402A Sprain of unspecified ligament of left ankle, initial encounter (principal); F32.9 Major depressive disorder, single episode, unspecified; F41.9 Anxiety disorder, unspecified; Z79.899 Other long term (current) drug therapy; W10.9XXA Fall (on) (from) unspecified stairs and steps, initial encounter; Y93.01 Activity, walking, marching and hiking; Y92.009 Unspecified place in unspecified non-institutional (private) residence as the place of occurrence of the external cause
CPT/HCPCS: 99284

== ENCOUNTER 2019-03-19 19:32 | Emergency (ER) | payer OTHER ==
[2019-03-19] MEDS ORDERED: SODIUM CHLORIDE 0.9% 1,000 ML IV ONE (20:11)
--- NOTE | 2019-03-19 20:13 | ED ---
General Adult HPI - General Chief complaint: Vaginal Bleeding Stated complaint: Vaginal bleeding Time Seen by Provider: 03/19/19 20:04 Source: patient, RN notes reviewed Mode of arrival: ambulatory - History of Present Illness Initial comments: 28-year-old female presents to the emergency department for heavy vaginal bleeding 2 days. Patient states she has had some cramping in the lower abdomen and has had heavy bleeding. Patient states that today she has passed multiple clots. Patient states she was about 8 days late before she started to bleed. Patient does have a history of a tubal ligation. Patient denies any significant pain in the abdomen. Patient does admit to feeling somewhat lightheaded for the past few days. Denies any other complaints. Patient has no other complaints at this time including shortness of breath, chest pain, abdominal pain, nausea or vomiting, headache, or visual changes. - Related Data Home Medications Medication Instructions Recorded Confirmed Venlafaxine HCl ER [Effexor XR] 75 mg PO DAILY 03/19/19 03/19/19 Allergies Allergy/AdvReac Type Severity Reaction Status Date / Time No Known Allergies Allergy Verified 03/19/19 20:28 Review of Systems ROS Statement: Those systems with pertinent positive or pertinent negative responses have been documented in the HPI. ROS Other: All systems not noted in ROS Statement are negative. Past Medical History Past Medical History: No Reported History Additional Past Medical History / Comment(s): OB history: She had two previous . blood type o+, History of Any Multi-Drug Resistant Organisms: None Reported Past Surgical History: Section, Tubal Ligation Past Anesthesia/Blood Transfusion Reactions: No Reported Reaction Past Psychological History: Anxiety, Depression Smoking Status: Never smoker Past Alcohol Use History: None Reported Past Drug Use History: None Reported - Past Family History Mother Family Medical History: No Reported History General Exam General appearance: alert, in no apparent distress Head exam: Present: atraumatic, normocephalic, normal inspection Eye exam: Present: normal appearance, PERRL, EOMI. Absent: scleral icterus, conjunctival injection, periorbital swelling ENT exam: Present: normal exam, mucous membranes moist Neck exam: Present: normal inspection, full ROM. Absent: tenderness, meningismus, lymphadenopathy Respiratory exam: Present: normal lung sounds bilaterally. Absent: respiratory distress, wheezes, rales, rhonchi, stridor Cardiovascular Exam: Present: regular rate, normal rhythm, normal heart sounds. Absent: systolic murmur, diastolic murmur, rubs, gallop, clicks GI/Abdominal exam: Present: soft, normal bowel sounds. Absent: distended, tenderness, guarding, rebound, rigid Course Vital Signs 03/19/19 03/19/19 19:50 21:52 Temperature 98.5 F Pulse Rate 84 78 Respiratory 16 18 Rate Blood Pressure 124/90 122/78 O2 Sat by Pulse 98 99 Oximetry Medical Decision Making - Medical Decision Making 28-year-old female presents to the emergency department for vaginal bleeding. Patient states this has been ongoing for 2 days. States she was a days late on her period. States this is heavier than normal and patient is passing clots. On exam patient does have mild bleeding however no severe hemorrhaging whatsoever. CBC unremarkable. Hemoglobin 13.3. CMP is unremarkable as well. Patient denying any pain, no tenderness on exam. Urine does show greater than 182 red blood cells which is from vaginal bleeding. Ultrasound shows no acute process. At this time patient is likely expressing dysfunctional uterine bleeding. Patient is well enough to follow up outpatient as she is hemodynamically stable. However discussed following up with BAR EXAMINER tomorrow and returning here if she has any worsening symptoms. - Lab Data Result diagrams: 03/19/19 20:25 03/19/19 20:25 Lab Results 03/19/19 03/19/19 03/19/19 Range/Units 20:25 20:25 20:25 WBC 13.4 H (3.8-10.6) k/uL RBC 4.77 (3.80-5.40) m/uL Hgb 13.3 (11.4-16.0) gm/dL Hct 40.3 (34.0-46.0) % MCV 84.5 (80.0-100.0) fL MCH 27.9 (25.0-35.0) pg MCHC 33.0 (31.0-37.0) g/dL RDW 14.0 (11.5-15.5) % Plt Count 326 (150-450) k/uL Neutrophils % 65 % Lymphocytes % 27 % Monocytes % 4 % Eosinophils % 1 % Basophils % 1 % Neutrophils # 8.7 H (1.3-7.7) k/uL Lymphocytes # 3.7 (1.0-4.8) k/uL Monocytes # 0.6 (0-1.0) k/uL Eosinophils # 0.2 (0-0.7) k/uL Basophils # 0.1 (0-0.2) k/uL Sodium 140 (137-145) mmol/L Potassium 3.9 (3.5-5.1) mmol/L Chloride 103 (98-107) mmol/L Carbon Dioxide 28 (22-30) mmol/L Anion Gap 9 mmol/L BUN 15 (7-17) mg/dL Creatinine 0.67 (0.52-1.04) mg/dL Est GFR (CKD-EPI)AfAm >90 (>60 ml/min/1.73 sqM) Est GFR (CKD-EPI)NonAf >90 (>60 ml/min/1.73 sqM) Glucose 82 (74-99) mg/dL Calcium 9.6 (8.4-10.2) mg/dL Total Bilirubin 0.7 (0.2-1.3) mg/dL AST 21 (14-36) U/L ALT 25 (9-52) U/L Alkaline Phosphatase 103 (38-126) U/L Total Protein 7.3 (6.3-8.2) g/dL Albumin 4.5 (3.5-5.0) g/dL Urine Color Urine Appearance (Clear) Urine pH (5.0-8.0) Ur Specific [place] (1.001-1.035) Urine Protein (Negative) Urine Glucose (UA) (Negative) Urine Ketones (Negative) Urine Blood (Negative) Urine Nitrite (Negative) Urine Bilirubin (Negative) Urine Urobilinogen (<2.0) mg/dL Ur Leukocyte Esterase (Negative) Urine RBC (0-5) /hpf Urine WBC (0-5) /hpf Ur Squamous Epith Cells (0-4) /hpf Urine Mucus (None) /hpf Urine HCG, Qual Not Detected (Not Detectd) Blood Type Blood Type Recheck Antibody Screen Spec Expiration Date 03/19/19 03/19/19 Range/Units 20:25 21:20 WBC (3.8-10.6) k/uL RBC (3.80-5.40) m/uL Hgb (11.4-16.0) gm/dL Hct (34.0-46.0) % MCV (80.0-100.0) fL MCH (25.0-35.0) pg MCHC (31.0-37.0) g/dL RDW (11.5-15.5) % Plt Count (150-450) k/uL Neutrophils % % Lymphocytes % % Monocytes % % Eosinophils % % Basophils % % Neutrophils # (1.3-7.7) k/uL Lymphocytes # (1.0-4.8) k/uL Monocytes # (0-1.0) k/uL Eosinophils # (0-0.7) k/uL Basophils # (0-0.2) k/uL Sodium (137-145) mmol/L Potassium (3.5-5.1) mmol/L Chloride (98-107) mmol/L Carbon Dioxide (22-30) mmol/L Anion Gap mmol/L BUN (7-17) mg/dL Creatinine (0.52-1.04) mg/dL Est GFR (CKD-EPI)AfAm (>60 ml/min/1.73 sqM) Est GFR (CKD-EPI)NonAf (>60 ml/min/1.73 sqM) Glucose (74-99) mg/dL Calcium (8.4-10.2) mg/dL Total Bilirubin (0.2-1.3) mg/dL AST (14-36) U/L ALT (9-52) U/L Alkaline Phosphatase (38-126) U/L Total Protein (6.3-8.2) g/dL Albumin (3.5-5.0) g/dL Urine Color Yellow Urine Appearance Clear (Clear) Urine pH 5.5 (5.0-8.0) Ur Specific [place] 1.020 (1.001-1.035) Urine Protein Negative (Negative) Urine Glucose (UA) Negative (Negative) Urine Ketones Negative (Negative) Urine Blood Moderate H (Negative) Urine Nitrite Negative (Negative) Urine Bilirubin Negative (Negative) Urine Urobilinogen <2.0 (<2.0) mg/dL Ur Leukocyte Esterase Negative (Negative) Urine RBC >182 H (0-5) /hpf Urine WBC 5 (0-5) /hpf Ur Squamous Epith Cells <1 (0-4) /hpf Urine Mucus Rare H (None) /hpf Urine HCG, Qual (Not Detectd) Blood Type O Positive Blood Type Recheck No Antibody Screen NEGATIVE Spec Expiration Date 03/22/20192319 Disposition Clinical Impression: Dysfunctional uterine bleeding Disposition: HOME SELF-CARE Condition: Good Instructions (If sedation given, give patient instructions): Dysfunctional Uterine Bleeding (ED) Additional Instructions: Please follow up with primary care or BAR EXAMINER in 1-2 days. Return here to the emergency department if you have any worsening symptoms. Is patient prescribed a controlled substance at d/c from ED?: No Referrals: Robby Gomes MD [Primary Care Provider] - 1-2 days Time of Disposition: 22:34
[2019-03-19 21:15] LABS: Appearance,Urine Clear (Clear); Bilirubin,Urine Negative (Negative); Blood,Urine Moderate (Negative); Color,Urine Yellow; Glucose,Urine (UA) Negative (Negative); Ketones,Urine Negative (Negative); Leukocyte Esterase,Urine Negative (Negative); Mucus,Urine Rare /hpf; Nitrite,Urine Negative (Negative); PH, Urine 5.5 (5.0-8.0); Protein,Urine Negative (Negative); RBC,Urine >182 /hpf (0-5); Squamous Epithelial Cell,Urine <1 /hpf (0-4); Urobilinogen,Urine <2.0 mg/dL (<2.0); WBC,Urine 5 /hpf (0-5)
[2019-03-19 21:26] LABS: Basophils # (A) 0.1 k/uL (0-0.2); Basophils % (A) 1 %; Eosinophils # (A) 0.2 k/uL (0-0.7); Eosinophils % (A) 1 %; HCT 40.3 % (34.0-46.0); HGB 13.3 gm/dL (11.4-16.0); Lymphocytes # (A) 3.7 k/uL (1.0-4.8); Lymphocytes % (A) 27 %; MCH 27.9 pg (25.0-35.0); MCV 84.5 fL (80.0-100.0); Mean Platelet Volume 7.6; Monocytes # (A) 0.6 k/uL (0-1.0); Monocytes % (A) 4 %; Neutrophils # (A) 8.7 k/uL (1.3-7.7); Neutrophils % (A) 65 %; Platelet Count 326 k/uL (150-450); RBC 4.77 m/uL (3.80-5.40); WBC 13.4 k/uL (3.8-10.6)
[2019-03-19 21:27] LABS: ALT 25 U/L (9-52); AST 21 U/L (14-36); Albumin 4.5 g/dL (3.5-5.0); Alkaline Phosphatase 103 U/L (38-126); Anion Gap 9 mmol/L; Blood Urea Nitrogen 15 mg/dL (7-17); Calcium 9.6 mg/dL (8.4-10.2); Carbon Dioxide 28 mmol/L (22-30); Chloride 103 mmol/L (98-107); Glucose 82 mg/dL (74-99); Potassium 3.9 mmol/L (3.5-5.1); Sodium 140 mmol/L (137-145); Total Bilirubin 0.7 mg/dL (0.2-1.3); Total Protein 7.3 g/dL (6.3-8.2)
--- NOTE | 2019-03-19 22:30 | US ---
EXAMINATION TYPE: US transvaginal DATE OF EXAM: 03/19/2019 COMPARISON: NONE CLINICAL HISTORY: Pain. Heavy bleeding. TECHNIQUE: Transvaginal (TV EXAM MEASUREMENTS: Uterus: 7.8 x 4.0 x 5.4 cm Endometrial Stripe: 0.4 cm Right Ovary: 2.9 x 1.7 x 1.3 cm Left Ovary: 3.6 x 2.4 x 2.5 cm 1. Uterus: Anteverted wnl 2. Endometrium: wnl 3. Right Ovary: Follicles seen. 4. Left Ovary: Follicles seen. Spectral, color and waveform doppler imaging shows good arterial and venous flow within the ovaries ; there is no evidence for ovarian torsion. 5. Bilateral Adnexa: wnl 6. Posterior cul-de-sac: wnl Beta-hCG: unknown at time of imaging. IMPRESSION: No acute process.
[2019-03-19 23:07] VITALS: BP 107/61; PULSE 74; RESP 16; TEMP 97.3
== END 2019-03-19 23:06 | disposition home or self-care (01) ==
LOC: EC 19:32
DX: N93.8 Other specified abnormal uterine and vaginal bleeding (principal); R10.30 Lower abdominal pain, unspecified; F41.9 Anxiety disorder, unspecified; F32.9 Major depressive disorder, single episode, unspecified; Z98.51 Tubal ligation status; Z79.899 Other long term (current) drug therapy
CPT/HCPCS: 36415; 76830; 80053; 81001; 81025; 85025; 86850; 86900; 86901; 93975; 96360; 99284

== ENCOUNTER → 2019-05-06 | Outpatient (CLI) | payer OTHER ==
--- NOTE | 2019-05-06 12:42 | XR ---
EXAMINATION TYPE: XR chest 2V DATE OF EXAM: 05/06/2019 COMPARISON: 05/11/2017 HISTORY: 28-year-old female cough and congestion TECHNIQUE: Frontal and lateral views FINDINGS: The cardiomediastinal silhouette, aorta, and pulmonary vasculature are within normal limits. Lungs an d pleural spaces are clear. IMPRESSION: No acute cardiopulmonary process.
== END | disposition home or self-care (01) ==
LOC: RADXRMAIN 12:22
PROVIDERS: ATTEND Internal Medicine
DX: J06.9 Acute upper respiratory infection, unspecified (principal)
CPT/HCPCS: 71046

== ENCOUNTER 2019-07-01 10:11 | Emergency (ER) | payer OTHER ==
[2019-07-01 10:23] VITALS: RESP 18; TEMP 98.4
[2019-07-01] MEDS ORDERED: ONDANSETRON ODT 4 MG TAB PO STA (10:59)
[2019-07-01] MEDS ORDERED: DILTIAZEM DRIP BOLUS FROM BAG 1 MG SOLN IV ONE (11:04)
--- NOTE | 2019-07-01 11:08 | ED ---
Psych HPI - General Chief Complaint: Psychiatric Symptoms Stated Complaint: depression Time Seen by Provider: 07/01/19 10:23 Source: patient, RN notes reviewed Mode of arrival: ambulatory - History of Present Illness Initial Comments: This is a 28-year-old female history of anxiety and depression who is here today complaining of increasing depression and anxiety and thoughts that she would be better off if she wasn't here though no overt suicidal ideation or thoughts. She denies any drug or alcohol use she states she's been taking her medication as directed without relief she states she is going through divorce and some other legal issues which are compounding the stress. She does have 2 children. She also states that she has not been eating very well and has at times had nausea. She does state that she had a tubal ligation does not believe she has any possibility of . She does have no other complaints at this time MD Complaint: feels depressed - Related Data Home Medications Medication Instructions Recorded Confirmed ALPRAZolam [Xanax] 0.25 mg PO DAILY PRN 07/01/19 07/01/19 Escitalopram [Lexapro] 20 mg PO DAILY 07/01/19 07/01/19 Allergies Allergy/AdvReac Type Severity Reaction Status Date / Time No Known Allergies Allergy Verified 07/01/19 10:50 Review of Systems ROS Statement: Those systems with pertinent positive or pertinent negative responses have been documented in the HPI. ROS Other: All systems not noted in ROS Statement are negative. Past Medical History Past Medical History: No Reported History Additional Past Medical History / Comment(s): OB history: She had two previous . blood type o+, History of Any Multi-Drug Resistant Organisms: None Reported Past Surgical History: Section, Tubal Ligation Past Anesthesia/Blood Transfusion Reactions: No Reported Reaction Past Psychological History: Anxiety, Depression Smoking Status: Never smoker Past Alcohol Use History: None Reported Past Drug Use History: None Reported - Past Family History Mother Family Medical History: No Reported History General Exam - General Exam Comments Initial Comments: This is a well-developed well-nourished awake alert oriented 3 female Limitations: no limitations General appearance: alert, in no apparent distress Head exam: Present: atraumatic, normocephalic, normal inspection Eye exam: Present: normal appearance, PERRL, EOMI. Absent: scleral icterus, conjunctival injection, periorbital swelling ENT exam: Present: normal exam, mucous membranes moist Neck exam: Present: normal inspection. Absent: tenderness, meningismus, lymphadenopathy Respiratory exam: Present: normal lung sounds bilaterally. Absent: respiratory distress, wheezes, rales, rhonchi, stridor Cardiovascular Exam: Present: regular rate, normal rhythm, normal heart sounds. Absent: systolic murmur, diastolic murmur, rubs, gallop, clicks GI/Abdominal exam: Present: soft, normal bowel sounds. Absent: distended, tenderness, guarding, rebound, rigid Extremities exam: Present: normal inspection, full ROM, normal capillary refill. Absent: tenderness, pedal edema, joint swelling, calf tenderness Back exam: Present: normal inspection Neurological exam: Present: alert, oriented X3, CN II-XII intact Psychiatric exam: Present: depressed, flat affect Skin exam: Present: warm, dry, intact, normal color. Absent: rash Course Vital Signs 07/01/19 10:19 Temperature 98.4 F Pulse Rate 94 Respiratory 18 Rate Blood Pressure 140/91 O2 Sat by Pulse 99 Oximetry Medical Decision Making - Medical Decision Making The patient will be discharged after evaluation by EPS. There is a care plan patient is not suicidal at this time. - Lab Data Lab Results 07/01/19 07/01/19 Range/Units 11:15 11:15 Urine HCG, Qual Not Detected (Not Detectd) Urine Opiates Screen Not Detected (NotDetected) Ur Oxycodone Screen Not Detected (NotDetected) Urine Methadone Screen Not Detected (NotDetected) Ur Propoxyphene Screen Not Detected (NotDetected) Ur Barbiturates Screen Not Detected (NotDetected) U Tricyclic Antidepress Not Detected (NotDetected) Ur Phencyclidine Scrn Not Detected (NotDetected) Ur Amphetamines Screen Not Detected (NotDetected) U Methamphetamines Scrn Not Detected (NotDetected) U Benzodiazepines Scrn Not Detected (NotDetected) Urine Cocaine Screen Not Detected (NotDetected) U Marijuana (THC) Screen Not Detected (NotDetected) Disposition Clinical Impression: Depression, Acute anxiety Disposition: HOME SELF-CARE Condition: Good Instructions (If sedation given, give patient instructions): Depression (ED), Anxiety (ED) Is patient prescribed a controlled substance at d/c from ED?: No Referrals: Robby Gomes MD [Primary Care Provider] - 1-2 days
[2019-07-01] MEDS ORDERED: DILTIAZEM 125 MG in SODIUM CHLORIDE 0.9% 100 ML IV SCH (11:15)
[2019-07-01 11:39] LABS: Amphetamine Screen,Urine Not Detected (NotDetected); Barbiturate Screen,Urine Not Detected (NotDetected); Benzodiazepines Screen,Urine Not Detected (NotDetected); Cocaine Screen,Urine Not Detected (NotDetected); Methadone Screen, Urine Not Detected (NotDetected); Opiate Screen,Urine Not Detected (NotDetected); Oxycodone Screen, Urine Not Detected (NotDetected); Phencyclidine Screen,Urine Not Detected (NotDetected); Tricyclic Antidepressant,Urine Not Detected (NotDetected); Urn Cannabinoid Scrn Not Detected (NotDetected)
[2019-07-01 13:40] VITALS: BP 132/72; PULSE 74
== END 2019-07-01 13:38 | disposition home or self-care (01) ==
LOC: EC 10:11
DX: F32.9 Major depressive disorder, single episode, unspecified (principal); F41.9 Anxiety disorder, unspecified; Z79.899 Other long term (current) drug therapy
CPT/HCPCS: 80306; 81025; 82075; 99284

== ENCOUNTER → 2019-12-09 | Outpatient (CLI) | payer OTHER ==
--- NOTE | 2019-12-09 20:01 | XR ---
Abdomen HISTORY: Upper abdomen pain for 10 days frontal view the abdomen on 2 images There is no evident bowel obstruction or pneumoperitoneum. No pathologic calcification. Bone minerali zation is maintained. There is overlying artifact. Lung bases are clear. IMPRESSION: Nonobstructive bowel gas pattern.
== END | disposition home or self-care (01) ==
LOC: RADXRMAIN 13:23
PROVIDERS: ATTEND Internal Medicine
DX: R10.9 Unspecified abdominal pain (principal)
CPT/HCPCS: 74018

== ENCOUNTER → 2019-12-19 | Outpatient (CLI) | payer OTHER ==
--- NOTE | 2019-12-19 08:21 | US ---
EXAMINATION TYPE: US gallbladder DATE OF EXAM: 12/19/2019 COMPARISON: CT dated 05/28/2018 CLINICAL HISTORY: R10.84 Abdominal pain. EXAM MEASUREMENTS: Liver Length: 14.2 cm Gallbladder Wall: 0.2 cm CBD: 0.4 cm Right Kidney: 10.7 x 3.5 x 4.6 cm Pancreas: wnl Liver: 1.8 x 1.3 x 1.6cm hyperechoic lesion right lobe, also seen on previous ct Gallbladder: wnl Evidence for sonographic Hebert's sign: no CBD: wnl Right Kidney: kidney has medullary sponge appearance with echogenic pyramids, however this was not s een on the CT of 08/10/2017. There is a cyst measuring 2.0 x 1.9 x 2.1cm of the lower pole and hyperec hoic focus measuring 0.3 x 0.1 x 0.3cm IMPRESSION: 1. Redemonstration of a 1.8 cm hepatic lesion consistent with a benign hemangioma on the CT of 018. 2. Solitary nonobstructing right renal calculus. No hydronephrosis of the right kidney. 3. No sonographic evidence of cholelithiasis nor acute cholecystitis.
== END | disposition home or self-care (01) ==
LOC: RADUSWWP 07:09
PROVIDERS: ATTEND Internal Medicine
DX: N20.0 Calculus of kidney (principal); D18.03 Hemangioma of intra-abdominal structures
CPT/HCPCS: 76705

== ENCOUNTER 2020-06-08 05:43 | Day surgery (SDC) | payer OTHER ==
[2020-06-04 12:41] VITALS: BMI 30.9
--- NOTE | 2020-06-06 20:53 | P.HPOB ---
History of Present Illness H&P Date: 06/06/20 Chief Complaint: Menorrhagia. This patient is a pleasant 29-year-old 2 para 2 female who is presenting for endometrial ablation secondary to menorrhagia. Patient went to the emergency department earlier this year with profuse bleeding and did have an ultrasound that time that was negative. She continues to have bleeding problems and we discussed options including hormonal treatment versus surgical treatment. Patient is requesting endometrial ablation for treatment. Patient's had a tubal ligation for control. Review of Systems Genitourinary: Reports as per HPI Menstruation: Reports cycle variable, Reports period heavy Past Medical History Past Medical History: No Reported History Additional Past Medical History / Comment(s): HEAVY LONG MENSES. History of Any Multi-Drug Resistant Organisms: None Reported Past Surgical History: Section, Tubal Ligation Additional Past Surgical History / Comment(s): Section X2. Past Anesthesia/Blood Transfusion Reactions: Motion Sickness Past Psychological History: Anxiety, Depression Smoking Status: Former smoker Past Alcohol Use History: None Reported Additional Past Alcohol Use History / Comment(s): Quit smoking 10 yrs ago. Past Drug Use History: None Reported - Past Family History Mother Family Medical History: No Reported History Medications and Allergies Home Medications Medication Instructions Recorded Confirmed Type FLUoxetine HCL [PROzac] 40 mg PO QAM 06/04/20 06/04/20 History Melatonin 5 mg PO HS 06/04/20 06/04/20 History Allergies Allergy/AdvReac Type Severity Reaction Status Date / Time No Known Allergies Allergy Verified 06/04/20 12:30 Exam - OBG Physical Exam Abdomen: bowel sounds normal, no diffuse tenderness, no bruit present, no guarding noted, no hepatomegaly, no splenomegaly, no mass Vulva: both: normal Vagina: normal moisture, no discharge Cervix: no lesion, no discharge Uterus: normal size Results Ultrasound shows a normal uterus with endometrium of 0.4 cm. Assessment and Plan Assessment: This is a pleasant 29-year-old 2 para 2 female with persistent menorrhagia and normal evaluation. Patient declines trial of hormonal treatment was requesting endometrial ablation for treatment. Plan is hysteroscopy, D&C, NovaSure endometrial ablation. Patient does understand the surgery and risks including risks of infection, bleeding, possible uterine perforation, and/or thermal injury. All the patient's questions are answered and a written consent is obtained. (1) Menorrhagia Status: Chronic Code(s): N92.0 - EXCESSIVE AND FREQUENT MENSTRUATION WITH REGULAR CYCLE SNOMED Code(s): 133377143
[~2020-06-08 05:43] MED LIST changes: -BUPIVACAINE (PF) 0.5% 30 ML VIAL SQ ONE; -DEXAMETHASONE SOD PHOSPHATE 10 MG/ML 1 ML VIAL IV ONE; -HYDROmorphone (PF) 1 MG/ML ONE; -HYDROmorphone 0.5 MG/0.5 ML SYRINGE IVP PRN; -KETOROLAC 30 MG/ML 1 ML VIAL ONE; -LACTATED RINGERS 1,000 ML IV SCH; -LIDOCAINE 1% 20 ML VIAL (10MG/ML) FOR IV START INTRADERMA ONE; -LIDOCAINE 1% INJ 10MG/ML (20 ML MDV) ONE; -MIDAZOLAM 2 MG/2 ML VIAL ONE; -ONDANSETRON 4 MG/2 ML VIAL IVP ONE; -PROPOFOL 10 MG/ML 20 ML VIAL IV ONE; -SCOPOLAMINE 1.5MG/72HR PATCH TRANSDERM ONE; -SUCCINYLCHOLINE CHLORIDE 100 MG/5 ML SYR IV ONE; -diphenhydrAMINE 50 MG/ML 1 ML VIAL IVP ONE; -fentaNYL (PF) 50 MCG/ML 2 ML AMP ONE
[2020-06-08] MEDS ORDERED: SCOPOLAMINE 1.5MG/72HR PATCH TRANSDERM ONE (06:01)
[2020-06-08] MEDS ORDERED: LACTATED RINGERS 1,000 ML IV SCH (06:01)
[2020-06-08] MEDS ORDERED: DEXAMETHASONE SOD PHOSPHATE 10 MG/ML 1 ML VIAL IV ONE (06:01)
[2020-06-08] MEDS ORDERED: ONDANSETRON 4 MG/2 ML VIAL IVP ONE (06:01)
[2020-06-08] MEDS ORDERED: LIDOCAINE 1% (10MG/ML) FOR IV START INTRADERMA PRN (06:01)
[2020-06-08 06:18] VITALS: RESP 16
[2020-06-08] MEDS ORDERED: ONDANSETRON 4 MG/2 ML VIAL ONE (06:33)
[2020-06-08] MEDS ORDERED: MIDAZOLAM 2 MG/2 ML VIAL ONE (07:10)
[2020-06-08] MEDS ORDERED: fentaNYL (PF) 50 MCG/ML 2 ML AMP ONE (07:10)
[2020-06-08] MEDS ORDERED: LIDOCAINE 1% INJ 10MG/ML (20 ML MDV) ONE (07:10)
[2020-06-08] MEDS ORDERED: PROPOFOL 10 MG/ML 20 ML VIAL IV ONE (07:10)
[2020-06-08] MEDS ORDERED: KETOROLAC 30 MG/ML 1 ML VIAL ONE (07:10)
[2020-06-08] MEDS: HYDROmorphone 0.5 MG/0.5 ML SYRINGE IVP PRN ×2 (07:53→08:30)
--- NOTE | 2020-06-08 08:03 | P.OP ---
Date of Procedure: 06/08/20 Preoperative Diagnosis: Menorrhagia Postoperative Diagnosis: Same Procedure(s) Performed: #1: Hysteroscopy. #2: Dilation and curettage. #3: NovaSure endometrial ablation Anesthesia: other (LMA) Surgeon: Garry Hope Estimated Blood Loss (ml): 10 Urine output (ml): 20 Pathology: other (Uterine curettings) Condition: stable Disposition: PACU Indications for Procedure: Please see dictated H&P for intimate details of this patient's admission. Brief summary is a pleasant 29-year-old multiparous patient with refractory menorrhagia requesting endometrial ablation for treatment. Patient I have discussed the surgery in detail including the risks of infection, bleeding, possible uterine perforation, and/or thermal injury. All the patient's questions are answered written consent is obtained. Operative Findings: This patient had a normal-appearing endometrial cavity Description of Procedure: This patient is taken to the operating room where she is laid in the supine position. She subsequent undergoes general anesthesia without incident. With an adequate level of anesthesia she's placed in dorsal lithotomy position. His vaginal perineal prep and drape. I first drain the bladder for 20 mL of clear urine. Weighted speculum placed in the posterior vagina and the anterior lip of cervix is grasped with an Allis clamp. Uterus is then gently sounded to 9 cm. Gentle dilation is then done of the endocervix to allow the hysteroscope easily and the uterine cavity. Hysteroscopy is then performed and the uterine cavity is visualized in its entirety and appears normal. This done the hysteroscope was removed. Endometrial cavity was measured a length of 6 cm. I then dilate cervix slightly more to allow a small curette easily and the uterine cavity. Gentle but thorough 4 quadrant curettage is then done. This completed the NovaSure device is then opened it appears to be intact. Set at a length of 6 cm and seated in place and opens up to a width of 2.5 cm. With this done it is t hen passes the cavity integrity test and then is enabled at a 83 W setting for 1 minute 25 seconds. NovaSure device is then removed. Again it appears to be intact. Hysteroscopy is then performed again and the uterine cavity appears to be ablated up to the endocervix. This completed the Allis clamp and weighted speculum removed. All counts are correct 3. There are no complications. Patient is awakened from anesthesia and taken recovery room satisfactory condition.
[2020-06-08 08:06] VITALS: TEMP 96.9
[2020-06-08] MEDS ORDERED: LACTATED RINGERS 1,000 ML IV ONE (08:41)
[2020-06-08 09:13] VITALS: BP 123/56; PULSE 88
== END 2020-06-08 09:34 | disposition home or self-care (01) ==
LOC: OR 05:43
PROVIDERS: ATTEND Obstetrics & Gynecology
DX: N92.0 Excessive and frequent menstruation with regular cycle (principal); F41.9 Anxiety disorder, unspecified; F32.9 Major depressive disorder, single episode, unspecified; Z79.899 Other long term (current) drug therapy; Z98.51 Tubal ligation status; Z87.891 Personal history of nicotine dependence; Z98.891 History of uterine scar from previous surgery
CPT/HCPCS: 58563; J2250; J1100; J2405; J2001; J3010; J1885; J2704; J1170; 88305

== ENCOUNTER 2021-07-21 09:37 | Day surgery (SDC) | payer OTHER ==
[2021-07-20 10:04] VITALS: BMI 31.7
[2021-07-21 10:06] VITALS: RESP 16; TEMP 98.2
[2021-07-21] MEDS ORDERED: LACTATED RINGERS 1,000 ML IV ONE (10:09)
[2021-07-21] MEDS ORDERED: LIDOCAINE 1% (10MG/ML) FOR IV START INTRADERMA ONE (10:10)
[2021-07-21] MEDS ORDERED: MIDAZOLAM 2 MG/2 ML VIAL ONE (11:16)
[2021-07-21] MEDS ORDERED: PROPOFOL 10 MG/ML 20 ML VIAL IV ONE (11:16)
[2021-07-21] MEDS ORDERED: LIDOCAINE 1% INJ 10MG/ML (20 ML MDV) ONE (11:16)
--- NOTE | 2021-07-21 11:34 | P.PCN ---
Date of Procedure: 07/21/21 Procedure(s) Performed: BRIEF HISTORY: Patient is a 30-year-old, pleasant, white female scheduled for an upper endoscopy as a part of evaluation of severe epigastric pain and heartburn for the last few weeks duration. She was started on Pepcid 20 mg twice daily with some help. He scheduled for an upper endoscopy to rule out peptic ulcer disease. With biopsy. PROCEDURE PERFORMED: Esophagogastroduodenoscopy with biopsy. PREOPERATIVE DIAGNOSIS: Epigastric pain and heartburn. IV sedation per anesthesia. PROCEDURE: After informed consent was obtained, the patient was brought into the endoscopy unit. IV sedation was administered by Anesthesia under continuous monitoring. Initially the Olympus GIF-140 video endoscope was inserted into the mouth. Esophagus intubated without any difficulty. It was gradually advanced into the stomach and duodenum and carefully examined. The bulb and the second part of the duodenum appeared normal. The scope at this time was withdrawn to the stomach, adequately insufflated with air, and upon careful examination, mucosa of the antrum, had mild gastritis and biopsies were done from this area. There were several small polyps noted in the body the stomach which were biopsied. Rest of the body, cardia and the fundus appeared normal. The scope was then withdrawn into the esophagus. The GE junction was located at 39 cm from the incisors. The esophagus appeared normal. There were no erosions or ulcerations seen and the patient tolerated the procedure well. IMPRESSION: 1. Mild antral gastritis. 2. Small gastric polyps 3. No evidence of esophagitis. RECOMMENDATIONS: The findings of this examination were discussed with the patientas well as a family. She was advised to follow with the biopsy results. She will continue with Pepcid 20 mg twice daily and continue to follow antireflux measures.].
[2021-07-21 11:45] VITALS: BP 108/71
[2021-07-21 12:06] VITALS: PULSE 98
== END 2021-07-21 12:12 | disposition home or self-care (01) ==
LOC: ORWHC2ENDO 09:37
PROVIDERS: ATTEND Internal Medicine Gastroenterology
DX: R10.13 Epigastric pain (principal); K29.50 Unspecified chronic gastritis without bleeding; K31.7 Polyp of stomach and duodenum; K21.00 Gastro-esophageal reflux disease with esophagitis, without bleeding; F41.9 Anxiety disorder, unspecified; F32.9 Major depressive disorder, single episode, unspecified; Z79.899 Other long term (current) drug therapy
CPT/HCPCS: 81025; 88305; 43239; J2250; J2001; J2704

== ENCOUNTER → 2024-01-30 | Outpatient (CLI) | payer OTHER ==
--- NOTE | 2024-01-31 09:55 | CT ---
EXAMINATION TYPE: CT abdomen pelvis w con CT DLP: 690.3 mGycm, Automated exposure control for dose reduction was used. DATE OF EXAM: 01/30/2024 9:29 AM COMPARISON: CT abdomen pelvis most recent from 05/28/2018 CLINICAL INDICATION:Female, 33 years old with history of R10.9 abd/pelvic pain; Abdominal pain/pelvic pain TECHNIQUE: Axial CT abdomen pelvis w con;Sagittal and coronal reformats were created on a separate w orkstation. Contrast used:100ml mL of Isovue 370 with IV Contrast, (none if empty) Oral contrast used: with Oral Contrast (none if empty) FINDINGS: LOWER CHEST: Lungs are clear. No pleural effusions. ABDOMEN LIVER: Unremarkable. Stable right lobe cyst, unchanged since prior exam of 2018. GALLBLADDER AND BILE DUCTS: Unremarkable. PANCREAS: Unremarkable. SPLEEN: Unremarkable. ADRENAL GLANDS: Unremarkable. KIDNEYS AND URETERS: No evidence of hydronephrosis or renal calculus. The ureters are unremarkable. S imple right kidney cysts requiring a follow-up. PELVIS BLADDER: Unremarkable REPRODUCTIVE: Physiologic follicle left ovary. No ovarian or adnexal solid masses. ABDOMEN & PELVIS STOMACH AND BOWEL: Stomach and duodenum are unremarkable. Normal appendix. No evidence of bowel obstr uction. PERITONEUM/RETROPERITONEUM: No evidence of pneumoperitoneum or free fluid. VASCULATURE: No evidence of aortic aneurysm. MUSCULOSKELETAL: No acute osseous abnormalities LYMPH NODES: No gross evidence for lymphadenopathy. SOFT TISSUE/ABDOMINAL WALL: Unremarkable IMPRESSION: 1. No acute process identified.
== END | disposition home or self-care (01) ==
LOC: RADCTMAIN 07:26
PROVIDERS: ATTEND Family Medicine
DX: R10.9 Unspecified abdominal pain (principal); R10.2 Pelvic and perineal pain; R30.0 Dysuria
CPT/HCPCS: 74177; Q9967